=== PATIENT | male | born 1960 | race Caucasian/White ===

== ENCOUNTER 2021-02-15 07:08 | Outpatient (REF) | payer BC, SELFPAY | END 2021-02-15 07:09 | disposition home or self-care (01) | LOC: HO.WFDLDS 07:08 | PROVIDERS: PCP Internal Medicine; Visit Provider Internal Medicine | DX: Z20.822 Contact with and (suspected) exposure to COVID-19 (principal) | CPT/HCPCS: C9803; U0003; U0005 ==

== ENCOUNTER 2021-09-21 06:21 | Day surgery (SDC) | payer BC, SELFPAY ==
[2021-09-17 09:15] VITALS: BMI 28.8
--- NOTE | 2021-09-20 09:33 | P.CONAN_ITS ---
Documented by User: Balbina Joseph NP 09/20/21 09:33 HPI - Anesthesia Eval Consult details Narrative: 61yo M for Colonoscopy [facility] Past Medical History Medical History (Updated 09/17/21 @ 09:19 by Stephanie Herrera, LATIA) Elevated cholesterol History of diverticulosis History of prostate cancer HTN (hypertension) Surgical History Surgical History (Updated 09/17/21 @ 09:19 by Stephanie Herrera, RN) History of open reduction and internal fixation (ORIF) procedure History of prostate surgery Hx of colonoscopy Social History Social History Patient Tobacco Use Status: Former Tobacco user Have you been hit, kicked, punched, or otherwise hurt by someone within the past year? If so, by whom?: No Are you DNR?: No Advance Directives: No Advance Directives Information Provided: Yes Nutrition Risks: No Nutritional Risk Poor oral hygiene: No Meds Allergies Allergy/AdvReac Type Severity Reaction Status Date / Time pseudoephedrine [Sudafed] Allergy Unknown Unknown Verified 09/17/21 09:17 Home Medications Medication Instructions Recorded Confirmed Last Taken Type cholecalciferol (vitamin D3) 25 25 mcg PO DAILY 09/17/21 09/17/21 Unknown History mcg (1,000 unit) capsule (Vitamin D3) lisinopril 20 mg tablet 20 mg PO DAILY 09/17/21 09/17/21 09/21/21 History pravastatin 10 mg tablet 10 mg PO DAILY 09/17/21 09/17/21 Unknown History Exam Exam Date and Time: September 20, 2021 0933 Height,Weight and Vital Signs: Height 5 ft 8.5 in Weight 87.09 kg Assessment and Plan Assessment Anesthesia Assessment: Chart Reviewed Documented by User: Maribel Oswald MD 09/21/21 07:44 [facility] Past Medical History Medical History (Updated 09/17/21 @ 09:19 by Stephanie Herrera RN) Elevated cholesterol History of diverticulosis History of prostate cancer HTN (hypertension) Family History Family history of problems with anesthesia: No Surgical History Surgical History (Updated 09/17/21 @ 09:19 by Stephanie Herrera RN) History of open reduction and internal fixation (ORIF) procedure History of prostate surgery Hx of colonoscopy History of Problems with Anesthesia: No Social History Social History Patient Tobacco Use Status: Former Tobacco user Have you been hit, kicked, punched, or otherwise hurt by someone within the past year? If so, by whom?: No Are you DNR?: No Advance Directives: No Advance Directives Information Provided: Yes Nutrition Risks: No Nutritional Risk Poor oral hygiene: No Meds Allergies Allergy/AdvReac Type Severity Reaction Status Date / Time pseudoephedrine [Sudafed] Allergy Unknown Unknown Verified 09/17/21 09:17 Home Medications Medication Instructions Recorded Confirmed Last Taken Type cholecalciferol (vitamin D3) 25 25 mcg PO DAILY 09/17/21 09/17/21 Unknown History mcg (1,000 unit) capsule (Vitamin D3) lisinopril 20 mg tablet 20 mg PO DAILY 09/17/21 09/17/21 09/21/21 History pravastatin 10 mg tablet 10 mg PO DAILY 09/17/21 09/17/21 Unknown History Exam Height,Weight and Vital Signs: Height 5 ft 8.5 in Weight 87.09 kg Vital Signs Temp Pulse Resp BP Pulse Ox 09/21/21 06:31 98 F 66 18 151/92 H 97 Airway Mallampati Class: II TM Dist: >3cm Neck ROM: Full Loose/Missing/Broken Teeth: No (Crowns intact) Heart: RRR Lungs: CTAB Assessment and Plan Assessment Anesthesia Assessment: Anesthesia Plan Discussed Final Anesthetic Review Family History of Problems with Anesthesia: No History of Problems with Anesthesia: No NPO: Yes ASA Class: II Final Preanesthetic Review: No Changes in Pt Med Stat, Meds/Allgs Chart Reviewed, Consent Obtained/Reviewed and Anes Risks/Benef Reviewed Patient Risk: Low Procedure Risk: Low Assessment/Block/Sedation in SS: Assess/Block/Sedation-SS Anesthetic Plan Anesthetic Plan: MAC: Disposition: Standard PACU
[2021-09-21 06:31] VITALS: BP 151/92; PULSE 66; RESP 18; TEMP 36.6; O2SAT 97
[2021-09-21] MEDS: Lactated Ringers 1,000 ML 100 ML IVCONT (06:52)
--- NOTE | 2021-09-21 07:22 | MHC.SHP ---
Pre-Procedural Eval Section A Date of Service: 09/21/21 The patient is an INPATIENT: No Changes since office visit: No Cold of Flu in the past 2 weeks, No New Medical Problems, No Changes in Medication and No Patient answered all questions The History & Physical has been completed within 30 days and I have reviewed it.: Yes Section B Chief Complaint: screening Allergies: Allergies Allergy/AdvReac Type Severity Reaction Status Date / Time pseudoephedrine [Sudafed] Allergy Unknown Unknown Verified 09/17/21 09:17 Plan I have reviewed the history and physical and performed a pertinent physical examination on my patient. No changes have occurred unless specified.
[2021-09-21 08:00] VITALS: BP 104/69; PULSE 58; RESP 16; TEMP 36.1; O2SAT 96
--- NOTE | 2021-09-21 08:00 | P.BOP_ITS ---
Brief Operative Note Date of Service: 09/21/21 Pre-op diagnosis: screening Post-op diagnosis: same (colono polyps) Procedure: colonoscopy Surgeon: Alexandre Ramos Anesthesia: MAC Was an Nutritional Health Coach used for this Procedure?: No Estimated blood loss (mL): 2 Pathology: other (rectal polyps x2) Condition: stable Disposition: PACU
[2021-09-21 08:15] VITALS: BP 128/86; PULSE 66; RESP 16; TEMP 36.1; O2SAT 96
[2021-09-21 08:30] VITALS: BP 139/98; PULSE 56; RESP 16; TEMP 36.1; O2SAT 96
--- NOTE | 2021-09-21 20:32 | OP_ITS ---
SURGEON: Alexandre Ramos MD INDICATIONS: Colon cancer screening. PREOPERATIVE DIAGNOSIS: POSTOPERATIVE DIAGNOSIS: PROCEDURE PERFORMED: ESTIMATED BLOOD LOSS: COMPLICATIONS: ANESTHESIA: ASSISTANTS: SPECIMENS: PROCEDURE: Colonoscopy to the terminal ileum with biopsy. MEDICATIONS: Monitored anesthesia care. DESCRIPTION OF PROCEDURE: History and physical were performed. The risks and benefits of the procedure were explained to the patient. Informed consent was obtained and the patient placed in left lateral decubitus position. A digital rectal exam was performed and was found to be normal. The Olympus pediatric video colonoscope was introduced into the rectum and advanced to the cecum without difficulty. The cecum was identified by transillumination, palpation, and identification of ileocecal valve. Examination was performed. The scope was removed. He tolerated the procedure well and was taken to recovery in stable condition. FINDINGS: The terminal ileum was examined and appeared normal. The visualized colonic mucosa was within normal limits without evidence of masses or ulcers. There was some liquid stool mainly in the right colon and sigmoid. This was washed and suctioned as best possible. Exam was adequate. In the rectum were two less than 5 mm sessile polyps, which appeared hyperplastic. These were biopsied. No other polyps were identified. Retroflexed examination showed several hypertrophic anal papillae and some small internal hemorrhoids. IMPRESSION: Colon polyps. RECOMMENDATION: Follow up the biopsy results. MD SAUL Rodrigues/NEL / [id number]
== END 2021-09-21 08:55 | disposition home or self-care (01) ==
PROVIDERS: PCP Internal Medicine; Visit Provider Internal Medicine Gastroenterology
PROC: 0DJD8ZZ Inspection of Lower Intestinal Tract, Via Natural or Artificial Opening Endoscopic (ICD-10-PCS; CPT 45378; principal; 2021-09-21 07:30)
DX: Z12.11 Encounter for screening for malignant neoplasm of colon (principal); K62.1 Rectal polyp; K62.89 Other specified diseases of anus and rectum; K64.8 Other hemorrhoids; E78.00 Pure hypercholesterolemia, unspecified; I10 Essential (primary) hypertension; Z79.899 Other long term (current) drug therapy; Z88.8 Allergy status to other drugs, medicaments and biological substances; Z85.46 Personal history of malignant neoplasm of prostate; Z87.891 Personal history of nicotine dependence
CPT/HCPCS: 45380; 88305